=== PATIENT | male | born 1945 | race Caucasian/White ===

== ENCOUNTER → 2018-02-01 09:14 | Outpatient (CLI) | payer MEDICARE, OTHER, SELFPAY ==
[2018-02-01] MEDS: Acetaminophen 325 MG Tablet 650 MG PO (09:50)
[2018-02-01 10:00] VITALS: BP 127/63; PULSE 86; RESP 18; TEMP 36.4; O2SAT 99; BMI 24.0
[2018-02-01 10:36] VITALS: BP 101/61; PULSE 81; RESP 18; TEMP 36.3
[2018-02-01 11:36] VITALS: BP 108/64; PULSE 98; RESP 16; TEMP 36.6; O2SAT 100
[2018-02-01 12:48] VITALS: BP 104/61; PULSE 82; RESP 16; TEMP 36.4; O2SAT 100
== END ==
PROVIDERS: Referring Provider Internal Medicine Hematology & Oncology; Visit Provider Internal Medicine Hematology & Oncology
DX: Z51.89 Encounter for other specified aftercare (principal); D64.9 Anemia, unspecified; K92.2 Gastrointestinal hemorrhage, unspecified; C15.9 Malignant neoplasm of esophagus, unspecified
CPT/HCPCS: 36430; 86850; 86900; 86920; 86922; J7040; P9016; A4216

== ENCOUNTER → 2018-03-21 08:46 | Outpatient (CLI) | payer MEDICARE, OTHER, SELFPAY ==
--- NOTE | 2018-03-21 08:53 | RAD_ITS ---
CLINICAL HISTORY: Male, 72 years old. PROCEDURE: CONSENT: SEDATION: FLUOROSCOPY TIME (if supplied): (0:25) minutes/seconds TECHNIQUE: (All elements of maximal sterile barrier technique followed, including US elements as applicable) Patient swallowed barium without difficulty. 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 Almost the entire stomach is above the level of the diaphragm only part of the antrum and duodenum seen below the diaphragm. No evidence of obstruction The duodenal bulb is unremarkable but there is small diverticulum arising from the medial aspect of the second portion of the bladder this is less than 1 cm diverticulum. There is normal small pattern throughout the jejunum and ileum. No obvious recurrent or persistent lesion seen in the visualized esophagus or stomach. 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 No obstruction no filling defect seen. Electronically Signed: Zaria Ross, at 15:45 EST Tel , Service support ,
== END ==
PROVIDERS: Referring Provider Internal Medicine Hematology & Oncology; Visit Provider Internal Medicine Hematology & Oncology
DX: C15.5 Malignant neoplasm of lower third of esophagus (principal); D50.0 Iron deficiency anemia secondary to blood loss (chronic)
CPT/HCPCS: 74246